=== PATIENT | female | born 1955 | race Caucasian/White ===

== ENCOUNTER → 2017-05-22 | Outpatient (CLI) | payer OTHER ==
[~2017-05-22] VITALS: Ht 162.6 cm; Wt 109.4 kg
[~2017-05-22] MED LIST: ASPIRIN325 MG PO; CALCIUM 600 +1 EAC6 PO; EFFEXOR75 MG PO; HYDROCHLOROTHIA25 MG PO; LIDOCAINE700 MG TP; NEURONTIN300 MG PO; OMEPRAZOLE40 M1 PO; PRAVACHOL40 MG PO; ULTRAM50 MG PO; VASOTEC20 MG PO; VITAMIN B12 PO; ZOLOFT100 MG PO
== END | disposition home or self-care (01) ==
LOC: AMB 07:17
PROC: 0DBK8ZX Excision of Ascending Colon, Via Natural or Artificial Opening Endoscopic, Diagnostic (ICD-10-PCS; principal; 2017-05-22)
DX: Z12.11 Encounter for screening for malignant neoplasm of colon (principal); K63.5 Polyp of colon; K57.30 Diverticulosis of large intestine without perforation or abscess without bleeding; K62.89 Other specified diseases of anus and rectum; K21.9 Gastro-esophageal reflux disease without esophagitis; E78.5 Hyperlipidemia, unspecified; F32.9 Major depressive disorder, single episode, unspecified; I10 Essential (primary) hypertension; E66.9 Obesity, unspecified; Z68.41 Body mass index [BMI] 40.0-44.9, adult; M19.90 Unspecified osteoarthritis, unspecified site; G25.81 Restless legs syndrome; Z80.3 Family history of malignant neoplasm of breast; Z82.49 Family history of ischemic heart disease and other diseases of the circulatory system; Z83.3 Family history of diabetes mellitus; Z82.61 Family history of arthritis; Z84.1 Family history of disorders of kidney and ureter
CPT/HCPCS: 88305; 93005

== ENCOUNTER → 2017-08-24 | Outpatient (CLI) | payer OTHER ==
[~2017-08-24] MED LIST changes: +VICODIN 5-3001 EACH PO
== END | disposition home or self-care (01) ==
LOC: CDC 11:45
DX: Z01.810 Encounter for preprocedural cardiovascular examination (principal); M48.50XA Collapsed vertebra, not elsewhere classified, site unspecified, initial encounter for fracture; R94.31 Abnormal electrocardiogram [ECG] [EKG]
CPT/HCPCS: 93000

== ENCOUNTER 2017-08-28 11:02 | Day surgery (SDC) | payer OTHER ==
[~2017-08-28] VITALS: Ht 162.6 cm; Wt 113.4 kg
[2017-08-28 11:25] VITALS: BP 133/81
[2017-08-28] MEDS ORDERED: VICODIN 5-3001 EACH PO (13:17)
[2017-08-28 14:29] VITALS: BP 143/83
[2017-08-28 15:20] VITALS: BP 139/69
[2017-08-28 15:40] VITALS: BP 139/70
== END 2017-08-28 16:10 | disposition home or self-care (01) ==
LOC: SDC 11:02 → 2SOUTH 13:14 → SDC 13:14 → CANRESERV 13:24 → ENRESERV 13:24 → SDC 13:46
DX: M48.56XA Collapsed vertebra, not elsewhere classified, lumbar region, initial encounter for fracture (principal); I10 Essential (primary) hypertension; E78.5 Hyperlipidemia, unspecified; F32.9 Major depressive disorder, single episode, unspecified; M19.90 Unspecified osteoarthritis, unspecified site; Z90.710 Acquired absence of both cervix and uterus; E66.9 Obesity, unspecified; Z68.41 Body mass index [BMI] 40.0-44.9, adult; Z82.49 Family history of ischemic heart disease and other diseases of the circulatory system; Z83.3 Family history of diabetes mellitus
CPT/HCPCS: 88305; 88311; C1713; J0690; J1100; J1170; J2250; J2405; J2710; S0020